=== PATIENT | male | born 2000 | race Caucasian/White ===

== ENCOUNTER 2021-03-18 15:26 | Emergency (ER) | payer OTHER ==
[~2021-03-18] VITALS: Ht 177.8 cm; Wt 68.0 kg
== END 2021-03-18 21:15 | disposition left against medical advice (07) ==
LOC: ED 15:26
DX: R07.2 Precordial pain (principal); Z53.21 Procedure and treatment not carried out due to patient leaving prior to being seen by health care provider; X50.9XXA Other and unspecified overexertion or strenuous movements or postures, initial encounter; Y93.89 Activity, other specified; Y92.89 Other specified places as the place of occurrence of the external cause; Y99.8 Other external cause status

== ENCOUNTER 2025-05-20 19:27 | Emergency (ER) | payer BC ==
[~2025-05-20] VITALS: Ht 177.8 cm; Wt 76.2 kg
[2025-05-20] MEDS ORDERED: METHOCARBAMOL 750 MG TAB PO ONE (19:55)
[2025-05-20] MEDS ORDERED: PREDNISONE20 M1 PO (19:57)
[2025-05-20] MEDS ORDERED: METHOCARBAMOL750 M1 PO (19:57)
== END 2025-05-20 20:12 | disposition home or self-care (01) ==
LOC: ED 19:27
DX: S29.012A Strain of muscle and tendon of back wall of thorax, initial encounter (principal); F90.9 Attention-deficit hyperactivity disorder, unspecified type; W29.3XXA Contact with powered garden and outdoor hand tools and machinery, initial encounter; Y93.89 Activity, other specified; Y92.89 Other specified places as the place of occurrence of the external cause; Y99.8 Other external cause status

== ENCOUNTER → 2025-05-25 | Outpatient (CLI) | payer BC ==
[~2025-05-25] MED LIST: METHOCARBAMOL750 M1 PO; PREDNISONE20 M1 PO
[2025-05-25 14:32] LABS: BASO # 0.0 10*3/uL (0.0-0.1); BASO % 0.4 % (0.0-1.0); EOS # 0.0 10*3/uL (0.0-0.4); EOS % 0.4 % (1.0-4.0); MEAN CELL VOLUME 82.6 fl (80.0-94.0); MEAN CORPUSCULAR HGB 29.0 pg (27.0-31.0); MEAN PLATELET VOLUME 9.8 fl (9.6-12.3); MONO # 0.8 10*3/uL (0.1-1.0); MONO % 8.3 % (3.0-9.0); NEUT # 6.9 10*3/uL (2.3-7.9); NEUT % 67.7 % (47.0-73.0); NUCLEATED RED BLOOD CELL 0.0 % (0.0-0.0); NUCLEATED RED BLOOD CELL 0.0 10*3/uL (0.0-0.0); PLATELET COUNT AUTOMATED 276 10*3/uL (130-400); RED CELL DISTRI WIDTH 12.6 % (0-14.5)
[2025-05-25 14:32] LABS: BILIRUBIN Negative (Negative); BLOOD Negative (Negative); CLARITY Clear (Clear); COLOR Yellow (Yellow); KETONE Trace (Negative); LEUKO ESTERASE Negative (Negative); NITRITE Negative (Negative); PH 6.0 (4.5-8.0); SPECIFIC GRAVITY 1.025 (1.001-1.030); UROBILINOGEN 1.0 E.U./dl (0.0-1.0)
[2025-05-25 14:59] LABS: BUN 9 mg/dl (9-23); SGPT/ALT 8 U/L (5-49)
[2025-05-25 15:44] LABS: CALCIUM OXALATE CRYSTALS Trace; MUCOUS 2+
== END | disposition home or self-care (01) ==
LOC: LAB 12:41 → RESCLI 12:41
PROVIDERS: Student in an Organized Health Care Education/Training Program; ATTEND Student in an Organized Health Care Education/Training Program
DX: R63.4 Abnormal weight loss (principal); M54.9 Dorsalgia, unspecified

== ENCOUNTER → 2025-06-01 | Outpatient (CLI) | payer BC | LOC: RESCLI 01:53 | PROVIDERS: ATTEND Student in an Organized Health Care Education/Training Program | DX: M54.9 Dorsalgia, unspecified (principal); Z79.899 Other long term (current) drug therapy; Z88.8 Allergy status to other drugs, medicaments and biological substances ==